=== PATIENT | female | born 1940 | race Caucasian/White ===

== ENCOUNTER 2021-02-08 18:08 | Observation (INO) | payer MEDICARE, SELFPAY ==
[2021-02-08] VITALS (8 sets, daily range): BP systolic 118–137; BP diastolic 50–76; PULSE 61–80; RESP 19–30; TEMP 37.1–37.2; O2SAT 91–99
--- NOTE | ~2021-02-08 | US_ITS ---
EXAMINATION:US venous doppler LE BI INDICATION:Leg swelling and pain. TECHNIQUE: Multiple grayscale, color flow and Doppler images of the right and left lower extremity de ep venous systems were obtained and reviewed. COMPARISON:No prior studies for comparison. FINDINGS: The common femoral, superficial femoral and popliteal veins demonstrate normal respiratory variation, augmentation and compressibility. Color flow is also seen within the posterior tibial, pe roneal, greater saphenous and profunda veins. IMPRESSION: 1: No lower extremity deep venous thrombosis. Reviewed, dictated and finalized at location A.
--- NOTE | ~2021-02-08 | XR_ITS ---
EXAMINATION: XR chest 1V portable EXAM DATE: 02/09/2021 10:33 INDICATION: Shortness of breath . TECHNIQUE: Portable AP frontal chest x-ray was obtained. There is no prior study for comparison. FINDINGS: Mild cardiomegaly. No confluent consolidation, pneumothorax or pleural effusion suspected. There are bony degenerative changes. Left midlung zone calcified granuloma. IMPRESSION: Cardiomegaly. Reviewed, dictated and finalized at location B. IMPRESSION: Cardiomegaly.
[2021-02-08 18:45] LABS: Basophils Percent Auto 0.1 % (0.2-1.2); Eosinophils Absolute Auto 0.2 K/mm3 (0-0.3); Eosinophils Percent Auto 1.5 % (0-4.4); Hematocrit 37.6 % (37.0-47.0); Hemoglobin 11.2 g/dL (12.0-15.0); Immature Granulocyte Absolute 0.08 K/mm3 (0.00-0.031); Immature Granulocyte Percent A 0.6 % (0-0.5); Immature Platelet Fraction Pct 10.1 % (0.9-11.2); Lymphocytes Absolute Auto 0.23 K/mm3 (0.9-3.2); Lymphocytes Percent Auto 1.7 % (18.3-44.2); Mean Corpuscular HGB Conc 29.8 g/dl (32-36); Mean Corpuscular Hemoglobin 26.9 pg (26-34); Mean Corpuscular Volume 90.4 fl (80-100); Mean Platelet Volume 13.8 fl (7.4-10.4); Monocytes Absolute Auto 0.3 K/mm3 (0.1-0.6); Monocytes Percent Auto 2.2 % (2.6-8.5); Neutrophils Absolute Auto 12.6 K/mm3 (1.3-6.7); Neutrophils Percent Auto 93.9 % (45.5-73.1); Platelet Count Result 140 k/mm3 (150-375); Red Blood Count 4.16 M/mm3 (4.2-5.4); Red Cell Distribution Width 15.6 % (11.5-14.5); White Blood Count 13.4 K/mm3 (4.5-10.0)
[2021-02-08 18:53] LABS: Alanine Aminotransferase 23 U/L (4-35); Albumin Level 4.1 g/dL (3.5-5.1); Alkaline Phosphatase 65 U/L (38-126); Anion Gap 13 mmol/L (8-16); Aspartate Amino Transferase 25 U/L (14-36); Bilirubin,Total 0.4 mg/dL (0.2-1.3); Blood Urea Nitrogen 78 mg/dL (7-17); Calcium 8.9 mg/dL (8.4-10.2); Carbon Dioxide 15 mmol/L (22-30); Chloride 114 mmol/L (98-107); Estimated CRCL calculation 11 ml/min; Estimated Glomerular Filt Rate 12; Glucose 124 mg/dL (65-110); Potassium 4.7 mmol/L (3.4-5.0); Sodium 142 mmol/L (137-145)
[2021-02-08 19:29] LABS: Hypochromasia 1+ (NORMAL)
[2021-02-08 19:30] LABS: Anisocytosis 1+ (NORMAL)
--- NOTE | 2021-02-08 20:00 | ED.GENADULT ---
HPI - General Adult General Chief complaint: Wound/Laceration Stated complaint: ble cellutlits Time Seen by Provider: 02/08/21 19:41 Source: patient Mode of arrival: ambulatory Limitations: no limitations History of Present Illness HPI narrative: Patient is 80 years old white female referred to the emergency room from urgent care because of redness and pain of the lower extremities started yesterday. Patient was seen at [facility] 2 days ago for bladder infection, received 1 dose of antibiotic IV in the emergency room then discharged on Keflex 500 3 times daily. Yesterday patient developed redness and pain of the lower extremity more on the left side, she reports similar history secondary to cellulitis in the past. Patient's daughter is telling me that patient unable to walk or stand because of the pain of the lower extremities. Patient denies any fever, chills, nausea, vomiting. Patient is fully vaccinated for COVID-19. History of breast cancer with right mastectomy 2002, currently on no medications for breast cancer. History of chronic renal failure, hypertension, hyperlipidemia, patient does not smoke or drink or uses drugs, no history of diabetes Related Data Home Medications Medication Instructions Recorded Confirmed amlodipine [Norvasc] 02/08/21 aripiprazole [Abilify] 2 mg PO DAILY 02/08/21 aspirin [Adult Aspirin EC Low 81 mg PO DAILY 02/08/21 Strength] bupropion HCl 100 mg PO BID 02/08/21 calcitriol 0.25 mcg PO 3XW 02/08/21 furosemide 20 mg PO EVERY OTHER DAY 02/08/21 metoprolol succinate [Toprol XL] PO 02/08/21 02/08/21 Allergies Allergy/AdvReac Type Severity Reaction Status Date / Time Penicillins Allergy Rash Verified 02/08/21 18:58 celecoxib [From Celebrex] AdvReac Nausea and Verified 02/08/21 18:59 Vomiting diclofenac [From Voltaren] AdvReac Nausea Verified 02/08/21 18:59 Review of Systems Review of Systems: Narrative: CONSTITUTIONAL: Denies fever, chills, or sweats. EYES: Denies visual changes, redness, or discharge. ENT: Denies rhinorrhea, congestion, sore throat, or otalgia. CARDIOVASCULAR: Denies chest pain, palpitations, or edema. RESPIRATORY: Denies cough or dyspnea. GASTROINTESTINAL: Denies abdominal pain, nausea, vomiting, or diarrhea. GENITOURINARY: Denies dysuria or hematuria. SKIN: Denies rash or itching. MUSCULOSKELETAL: Denies back pain, joint pain, or myalgia. NEUROLOGIC: Denies headache, numbness, or weakness. PSYCHIATRIC: Denies anxiety or depression. PMFSH Social History Social History Gender identity (if verbalized by the patient): Female Exam Narrative: Exam Narrative: General appearance: Well-developed, well-nourished Skin: Erythematous changes of the lower leg bilaterally mainly on the left side anteriorly, warm, tender, no discharge, 1+ edema bilaterally Head: Normocephalic, nontraumatic Eyes: Clear conjunctiva ENT: Oropharynx normal, ears normal, nose normal Neck: Supple, nontender Chest and respiratory: Airway patent, no respiratory distress, no accessory muscle use Heart: Regular rate/rhythm Abdomen: Soft, nontender, no organomegaly, quiet bowel sounds Vascular: Normal peripheral pulses, normal capillary refill. 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
[2021-02-08 20:55] LABS: Add Urine Microscopic? YES; Appearance Urine Cloudy (Clear); Bacteria Urine Trace /hpf; Bilirubin Urine Negative (Negative); Color Urine Yellow (Yellow); Glucose Urine UA Negative (Negative); Ketones Urine Negative (Negative); Leukocyte Esterase Ur 2+ LEU/UL (Negative); Mucus Urine Rare /lpf; Nitrate Urine Negative (Negative); Protein Urine 2+ mg/dL (Negative); Specific Grav Ur 1.011 (1.001-1.035); Squamous Epithelial Cell Urine Occasional /hpf (Few); Urobilinogen Urine Negative mg/dL (<2.0); WBC Urine 21-30 /hpf
[2021-02-08 20:56] LABS: Blood Urine Negative (Negative)
[2021-02-08] MEDS: SODIUM CHLORIDE 0.9% IV 1,000 ML 500 ML IV CONT (20:56)
[2021-02-09] VITALS: BP 131/46; PULSE 65; RESP 34; TEMP 36.1; O2SAT 100
--- NOTE | 2021-02-09 00:10 | ADMGEN ---
This patient, Kenneth Jones, was admitted to Medical Room 345-. Patient/family oriented to hospital policies and general routines including ID bracelet, bed and alarms, visiting hours, pain management, procedures, bathroom and other care routines, personal items, smoking policy, room service/diet, and visiting hours. Information on how to activate the Rapid Response Team has been discussed. Patient/Family are encouraged to report perceived risks to care and to ask questions if they do not understand what they are told or what they should do.
[2021-02-09 00:13] VITALS: BMI 30.5
[2021-02-09] MEDS: SODIUM CHLORIDE 0.9% IV 1,000 ML 75 ML IV CONT ×2 (01:03→14:28)
[2021-02-09 05:10] VITALS: BP 122/48; PULSE 63; RESP 24; TEMP 36.1; O2SAT 100
[2021-02-09 06:02] LABS: Basophils Percent Auto 0.1 % (0.2-1.2); Eosinophils Absolute Auto 0.3 K/mm3 (0-0.3); Eosinophils Percent Auto 3.4 % (0-4.4); Hematocrit 31.6 % (37.0-47.0); Hemoglobin 9.3 g/dL (12.0-15.0); Immature Granulocyte Absolute 0.04 K/mm3 (0.00-0.031); Immature Granulocyte Percent A 0.5 % (0-0.5); Immature Platelet Fraction Pct 12.1 % (0.9-11.2); Lymphocytes Absolute Auto 0.43 K/mm3 (0.9-3.2); Lymphocytes Percent Auto 5.4 % (18.3-44.2); Mean Corpuscular HGB Conc 29.4 g/dl (32-36); Mean Corpuscular Hemoglobin 26.9 pg (26-34); Mean Corpuscular Volume 91.3 fl (80-100); Mean Platelet Volume 14.1 fl (7.4-10.4); Monocytes Absolute Auto 0.4 K/mm3 (0.1-0.6); Monocytes Percent Auto 5.2 % (2.6-8.5); Neutrophils Absolute Auto 6.7 K/mm3 (1.3-6.7); Neutrophils Percent Auto 85.4 % (45.5-73.1); Platelet Count Result 109 k/mm3 (150-375); Red Blood Count 3.46 M/mm3 (4.2-5.4); Red Cell Distribution Width 15.6 % (11.5-14.5); White Blood Count 7.9 K/mm3 (4.5-10.0)
[2021-02-09 06:20] LABS: Anion Gap 11 mmol/L (8-16); Blood Urea Nitrogen 74 mg/dL (7-17); Carbon Dioxide 16 mmol/L (22-30); Chloride 116 mmol/L (98-107); Estimated CRCL calculation 11 ml/min; Estimated Glomerular Filt Rate 12; Glucose 96 mg/dL (65-110); Sodium 143 mmol/L (137-145)
[2021-02-09 06:34] LABS: Hypochromasia 2+ (NORMAL); Platelet Estimate Adequate (Adequate)
[2021-02-09 08:20] VITALS: PULSE 63
[2021-02-09] MEDS: OMEGA 3 POLYUNSAT FATTY ACIDS 1 GM CAP PO (08:20)
[2021-02-09] MEDS: buPROPion HCL 100 MG TABLET PO ×2 (08:20→16:46)
[2021-02-09] MEDS: ARIPiprazole 2 MG TABLET PO (08:20)
[2021-02-09] MEDS: amLODIPine BESYLATE 5 MG TABLET PO (08:20)
[2021-02-09] MEDS: CHOLECALCIFEROL 1,000 UNITS TABLET 2000 UNITS PO (08:20)
[2021-02-09] MEDS: METOPROLOL SUCCINATE EXT REL 25 MG TABCR PO (08:20)
[2021-02-09] MEDS: ASPIRIN 81 MG ENTERIC TABLET PO (08:20)
[2021-02-09] MEDS: SODIUM BICARBONATE TAB 650 MG TABLET PO ×2 (08:20→16:45)
--- NOTE | 2021-02-09 09:23 | PM.IMHP ---
H&P: HPI History of Present Illness Date/Time: 02/09/21 09:05 Chief Complaint: Redness on bilateral Lower extremity Narrative: Patient is an 80 year old female with a past medical history of HTN, CHF, and depression that presented to the ED for evaluation of bilateral leg swelling and redness. Patient stated that she noticed the redness about a day or so. She stated that it started to hurt on the right leg. The left leg is also having some pain, but she stated that the right leg is the worst, and it hurts all over. She rated the pain in the right leg about a 8/10, which she stated was a shooting pain that travels down her leg to her toes. She also stated that she was recently at the ED in [place] for evaluation of urinary pain, urgency, and frequency. She stated that she does still have some of those symptoms, but they are not as bad. She also complained of constipation, and stated that she has not had a BM for the last three days. She also talked about having mobility problems that she had caulked up to being related to her arthritis. She admits to eating ok, and stated that she is still hungry and had to order more breakfast since she was still hungry. She does walk on her own at home, but sounds like she might have some gait issues since she fell in the kitchen a few weeks ago. She denied hitting her head, and stated that she fell on her buttocks. I also talked to her about the shortness of breath that you can see, and she stated that this is normal for her and she does not know why she is like this, but it is old for her. She denied chest pain, shortness of breath, nausea, vomiting, cough, pain, abdominal pain, fever, chills, sweats, numbness or tingling, or headache. She also stated that she lives in [place], [place] and is here with her daughter visiting her daughter's boyfriend Josias. Josias lives in [place], [place]. PATIENT IS BEING ADMITTED TO THE HOSPITAL FOR OBSERVATION Review of Systems Review of Systems: All systems reviewed & are unremarkable except as noted in HPI and below PMFSH Past Medical History Medical History Anemia Depression Hypertension Family History Family History (Updated 02/09/21 @ 09:37 by ADAM Watson) Father Heart problem Acute myocardial infarction Hypertension Heart disease Mother Breast cancer Hypertension Heart disease Grandparent Cerebrovascular accident maternal grandma Social History Social History (Updated 02/09/21 @ 10:16 by ADAM Watson) Social History: patient lives with her daughter and 3 grandchildren ages 5, 3, 6 months. She has a dog that she while on a.m. not show an acute outside CT. Patient was and her has been for 10 years she was to be a full code and her daughter be the surrogate for her if something were to happen. Smoking status: Never smoker Alcohol intake: never Substance use: never Living arrangements: with family Occupation/Education: retired Additional occupation/education comments: homemaker Gender identity (if verbalized by the patient): Female Sexual Orientation (if Verbalized by the Patient): Straight or Heterosexual Spiritual care concerns: Yes ( Congregation) Agree to blood products: Yes Meds Home Medications and Allergies Home Medications Medication Instructions Recorded Confirmed Type amlodipine [Norvasc] 5 mg PO DAILY 02/08/21 02/09/21 History aripiprazole [Abilify] 2 mg PO DAILY 02/08/21 02/09/21 History aspirin [Adult Aspirin EC Low 81 mg PO DAILY 02/08/21 02/09/21 History Strength] bupropion HCl 100 mg PO BID 02/08/21 02/09/21 History calcitriol 0.25 mcg PO 3XW 02/08/21 02/09/21 History furosemide 20 mg PO EVERY OTHER DAY 02/08/21 02/09/21 History metoprolol succinate [Toprol XL] 25 mg PO DAILY 02/08/21 02/09/21 History B12 1,000 mg PO 3XW 02/09/21 02/09/21 History Fish Oil 1,000 mg PO DAILY 02/09/21 0
[2021-02-09] MEDS: ENOXAPARIN 30 MG/0.3 ML SYRINGE SUB-Q (11:25)
[2021-02-09 14:00] VITALS: BP 127/74; PULSE 67; RESP 22; TEMP 36.4; O2SAT 97
[2021-02-09] MEDS: BISACODYL 10 MG SUPPOSITORY RECTAL (18:51)
[2021-02-09] MEDS: TOLNAFTATE 1% POWDER 45 GM BTL 1 APPLIC TOPICAL (20:48)
[2021-02-09 21:00] VITALS: BP 115/50; PULSE 62; RESP 22; TEMP 36.6; O2SAT 97
[2021-02-10] MEDS: SODIUM CHLORIDE 0.9% IV 1,000 ML 75 ML IV CONT (04:21)
[2021-02-10] MEDS: HYDROcodone/acetaminophen (*CRX) 5-325 MG TABLET 1 TAB PO (05:12)
[2021-02-10 05:16] VITALS: BP 140/65; PULSE 61; RESP 23; TEMP 36.1; O2SAT 97
[2021-02-10 07:05] LABS: Vancomycin Random 11.2 ug/mL (10-20)
[2021-02-10] MEDS: CHOLECALCIFEROL 1,000 UNITS TABLET 2000 UNITS PO (08:26)
[2021-02-10 08:27] VITALS: PULSE 61
[2021-02-10] MEDS: ASPIRIN 81 MG ENTERIC TABLET PO (08:27)
[2021-02-10] MEDS: ARIPiprazole 2 MG TABLET PO (08:27)
[2021-02-10] MEDS: OMEGA 3 POLYUNSAT FATTY ACIDS 1 GM CAP PO (08:27)
[2021-02-10] MEDS: buPROPion HCL 100 MG TABLET PO (08:27)
[2021-02-10] MEDS: calcitrioL 0.25 MCG CAPSULE PO (08:27)
[2021-02-10] MEDS: amLODIPine BESYLATE 5 MG TABLET PO (08:27)
[2021-02-10] MEDS: SODIUM BICARBONATE TAB 650 MG TABLET PO (08:27)
[2021-02-10] MEDS: METOPROLOL SUCCINATE EXT REL 25 MG TABCR PO (08:27)
[2021-02-10] MEDS: TOLNAFTATE 1% POWDER 45 GM BTL 1 APPLIC TOPICAL (08:28)
[2021-02-10 08:37] LABS: Hematocrit 29.8 % (37.0-47.0); Mean Corpuscular HGB Conc 30.2 g/dl (32-36); Mean Corpuscular Volume 89.5 fl (80-100); Mean Platelet Volume 14.2 fl (7.4-10.4); Platelet Count Result 114 k/mm3 (150-375); Red Blood Count 3.33 M/mm3 (4.2-5.4); Red Cell Distribution Width 15.8 % (11.5-14.5); White Blood Count 5.3 K/mm3 (4.5-10.0)
[2021-02-10 08:42] LABS: Alanine Aminotransferase 21 U/L (4-35); Albumin Level 3.2 g/dL (3.5-5.1); Alkaline Phosphatase 52 U/L (38-126); Anion Gap 12 mmol/L (8-16); Aspartate Amino Transferase 22 U/L (14-36); Bilirubin,Total 0.2 mg/dL (0.2-1.3); Blood Urea Nitrogen 77 mg/dL (7-17); Carbon Dioxide 17 mmol/L (22-30); Chloride 115 mmol/L (98-107); Estimated CRCL calculation 11 ml/min; Estimated Glomerular Filt Rate 13; Glucose 91 mg/dL (65-110); Magnesium 2.3 mg/dL (1.6-2.3); Potassium 4.6 mmol/L (3.4-5.0); Sodium 144 mmol/L (137-145)
[2021-02-10] MEDS: ENOXAPARIN 30 MG/0.3 ML SYRINGE SUB-Q (11:42)
--- NOTE | 2021-02-10 12:43 | P.DS_ITS ---
DS: Admitting Diagnosis Admitting Diagnosis Bilateral lower extremity cellulitis DS: Discharge Diagnosis Discharge Diagnosis (1) Bilateral cellulitis of lower leg: Code(s): L03.116 - Cellulitis of left lower limb; L03.115 - Cellulitis of right lower limb Status: Acute Assessment and Plan: * bilateral lower extremity red warm and swollen * Will continue Ceftriaxone 1gm and vancomycin 1250 from the ED * WBC 5.3 * Will trend swelling and redness for spread--Better today. Redness has reduced and swelling is better * Acetaminophen 1000mg PO, and norco 5/325 PO for pain * Blood cultures pending * Check Doppler- negative for DVT * Trend labs * Labs in the am * Trend vital signs * PT/OT (2) Hypertension: Code(s): I10 - Essential (primary) hypertension Status: Acute Assessment and Plan: * BP 140/65 * Continue home metoprolol 25mg PO daily and amlodipine 5mg PO daily * Trend blood pressure * Adjust medications as needed (3) Depression: Code(s): F32.9 - Major depressive disorder, single episode, unspecified Status: Acute Assessment and Plan: * Continue home abilify 2mg PO daily, bupropion 100mg PO BID (4) Urinary tract infection: Qualifiers: Hematuria presence: without hematuria Urinary tract infection type: site unspecified Qualified Code(s): N39.0 - Urinary tract infection, site not specified Code(s): N39.0 - Urinary tract infection, site not specified Status: Acute Assessment and Plan: * Diagnosed at [facility] * Was given Keflex 500mg TID * Ceftriaxone 1gm Q24hr * Urine culture pending * UA showed cloudy, leukocyte esterase 2+, white blood cell 21-30 * Deescalate antibiotics when cultures are resulted (5) CKD (chronic kidney disease): Qualifiers: Chronic kidney disease stage: unspecified stage Qualified Code(s): N18.9 - Chronic kidney disease, unspecified Code(s): N18.9 - Chronic kidney disease, unspecified Status: Acute Assessment and Plan: * BUN and CR elevated 77/3.40 * Unknown of baseline * NS at 75ml/hr for now * Possible UTI/dehydration * Trend labs * Labs in the am * 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 Since admission patient was treated with IV antibiotics For bilateral lower extremity cellulitis. since receiving the IV antibiotics patient has improving swelling and redness to her legs. Upon exam her leg still had 2+ pitting edema the redness was reduced and there was no more fever or heat from her leg. Her white blood cell count was 13.4 today is 5.3. Electrolytes have remained stable with a sodium of 144 and potassium of 146. BUN and creatinine are trending down with today being 77/3.4. Admissions creatinine was 3.7. Glucose is also remained stable and was reported today at 91. Chest x-ray just showed cardiomegaly. Patient has also been treated for a UTI. Prior to coming in here she was at the ED
--- NOTE | 2021-02-10 12:43 | PM.DS ---
DS: Admitting Diagnosis Admitting Diagnosis Bilateral lower extremity cellulitis DS: Discharge Diagnosis Discharge Diagnosis (1) Bilateral cellulitis of lower leg: Code(s): L03.116 - Cellulitis of left lower limb; L03.115 - Cellulitis of right lower limb Status: Acute Assessment and Plan: bilateral lower extremity red warm and swollen Will continue Ceftriaxone 1gm and vancomycin 1250 from the ED WBC 5.3 Will trend swelling and redness for spread--Better today. Redness has reduced and swelling is better Acetaminophen 1000mg PO, and norco 5/325 PO for pain Blood cultures pending Check Doppler- negative for DVT Trend labs Labs in the am Trend vital signs PT/OT (2) Hypertension: Code(s): I10 - Essential (primary) hypertension Status: Acute Assessment and Plan: BP 140/65 Continue home metoprolol 25mg PO daily and amlodipine 5mg PO daily Trend blood pressure Adjust medications as needed (3) Depression: Code(s): F32.9 - Major depressive disorder, single episode, unspecified Status: Acute Assessment and Plan: Continue home abilify 2mg PO daily, bupropion 100mg PO BID (4) Urinary tract infection: Qualifiers: Hematuria presence: without hematuria Urinary tract infection type: site unspecified Qualified Code(s): N39.0 - Urinary tract infection, site not specified Code(s): N39.0 - Urinary tract infection, site not specified Status: Acute Assessment and Plan: Diagnosed at [facility] Was given Keflex 500mg TID Ceftriaxone 1gm Q24hr Urine culture pending UA showed cloudy, leukocyte esterase 2+, white blood cell 21-30 Deescalate antibiotics when cultures are resulted (5) CKD (chronic kidney disease): Qualifiers: Chronic kidney disease stage: unspecified stage Qualified Code(s): N18.9 - Chronic kidney disease, unspecified Code(s): N18.9 - Chronic kidney disease, unspecified Status: Acute Assessment and Plan: BUN and CR elevated 77/3.40 Unknown of baseline NS at 75ml/hr for now Possible UTI/dehydration Trend labs Labs in the am 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 Since admission patient was treated with IV antibiotics For bilateral lower extremity cellulitis. since receiving the IV antibiotics patient has improving swelling and redness to her legs. Upon exam her leg still had 2+ pitting edema the redness was reduced and there was no more fever or heat from her leg. Her white blood cell count was 13.4 today is 5.3. Electrolytes have remained stable with a sodium of 144 and potassium of 146. BUN and creatinine are trending down with today being 77/3.4. Admissions creatinine was 3.7. Glucose is also remained stable and was reported today at 91. Chest x-ray just showed cardiomegaly. Patient has also been treated for a UTI. Prior to coming in here she was at the ED in [facility]. She was prescribed K flex with no improvement. Currently patient denies any frequency urgency issues with urinating. Patient also states that she is ready to go she feels a lot better and she is able to walk and stand on her own 2 feet without pain. Venous Doppler study was negative for DVT. Patient was also treated for constipation and has a total of 3 bowel movements since admission. Urine cultures and blood cultures are still pending. She has also
[2021-02-10 14:00] VITALS: BP 127/78; PULSE 56; RESP 20; TEMP 36.5; O2SAT 99
--- NOTE | 2021-02-10 18:07 | PC.NURSE ---
Spoke with patients pharmacy regarding discrepancy with Keflex prescription. Per Romaine Del Valle, script should be for Keflex 500mg Q12H X14 days (28 capsules). Called this prescription into the pharmacy and cancelled previous script. Spoke with pharmacist at [facility].
== END 2021-02-10 17:05 | disposition home or self-care (01) ==
LOC: ANHED 21:34 → ANH3MED 02-10 13:06
PROVIDERS: Nurse Practitioner; Admitting Provider Internal Medicine; Emergency Provider Emergency Medicine; Visit Provider Internal Medicine
DX: L03.115 Cellulitis of right lower limb (principal); L03.116 Cellulitis of left lower limb; N39.0 Urinary tract infection, site not specified; F32.9 Major depressive disorder, single episode, unspecified; I12.9 Hypertensive chronic kidney disease with stage 1 through stage 4 chronic kidney disease, or unspecified chronic kidney disease; N18.9 Chronic kidney disease, unspecified; Z74.09 Other reduced mobility; Z79.82 Long term (current) use of aspirin
CPT/HCPCS: 36415; 71045; 80048; 80053; 80202; 81001; 83735; 85025; 85027; 85055; 87040; 87086; 87088; 93970; 96361; 96365; 96366; 96367; 96372; 96375; 97161; 97165; 99285; A9270; G0378; J0696; J1650; J3370; J7030